=== PATIENT | female | born 1985 | race Caucasian/White ===

== ENCOUNTER 2020-08-24 07:48 | Inpatient (IN) | payer BC ==
[2020-08-24 08:29] VITALS: BMI 27.9
[2020-08-24] MEDS ORDERED: Lidocaine 1% (PF) 30 ML VIAL ONE (08:48)
[2020-08-24] MEDS ORDERED: NS / Oxytocin 40 units/1000ml 1,000 ML ONE (08:48)
[2020-08-24] MEDS ORDERED: hydrALAZINE 20 MG/ML VIAL SLOW IVP PRN ×2 (08:52→11:48)
[2020-08-24] MEDS ORDERED: Ondansetron PF 4 MG/2 ML Vial IVP PRN ×2 (08:52→11:48)
[2020-08-24] MEDS ORDERED: Promethazine HCl 25 MG/ML VIAL IM PRN (08:52)
[2020-08-24] MEDS ORDERED: NS / Oxytocin 40 units/1000ml 1,000 ML IV PRN (08:52)
[2020-08-24] MEDS ORDERED: Ibuprofen 800 MG TAB PO PRN (08:52)
[2020-08-24] MEDS ORDERED: Lactated Ringer's 1,000 ML IV PRN (08:52)
[2020-08-24] MEDS ORDERED: HYDROcodone/Acetaminophen 5/325 mg Tablet PO PRN ×4 (08:52→11:48)
[2020-08-24] MEDS ORDERED: Lidocaine 1% (PF) 30 ML VIAL SC PRN (08:52)
[2020-08-24 09:57] LABS: Hemoglobin 13.1 g/dL (12.0-16.0); Mean Corpuscular HGB CONC 34.8 g/dL (32.0-36.0); Mean Corpuscular Hemoglobin 32.4 pg (27.0-31.0); Mean Corpuscular Volume 93.1 fL (78.0-98.0); Mean Platelet Volume 7.6 fL (7.4-10.4); Platelet Count 163 thou/uL (130-400); RBC Distribution Width 11.6 % (11.5-14.5); Red Blood Cell (RBC) Count 4.06 mill/uL (4.20-5.40); White Blood Cell (WBC) Count 13.3 thou/uL (4.8-10.8)
--- NOTE | 2020-08-24 11:42 | PDOC.LDHP ---
Labor and Delivery H&P Chief complaint: contractions HPI: 35 y.o at 37 weeks 6 days with complains of contractions which started last night. She was able to sleep, but they woke her up this morning at 0600 and know that it was the real thing. She affirms movement. Current gestational age (weeks): 37 (6 day) Due date: 09/08/20 Grav: 2 Para: 1 OB History Details: at term 2009 at [id number] Current complications: none Abnormal US findings: No Current medications: pre- vitamins Previous surgical history: none Social history: none - Physical Exam Vital signs reviewed and normal: yes General: breathing through contractions Lungs: nonlabored breathing Abdomen: gravid FHT: category 1 - Vaginal Exam cm dilated: 6 Effacement: 90% Station: 0 - OB Labs Blood type: O RH: positive Antibody Screen: negative HIV: negative RPR: negative HEPSAg: negative 1 hour GCT: negative GBS: negative Urine drug screen: negative Rubella: immune - Assessment L&D Assessment: term patient in labor - Plan Plan: admit to L&D, informed consent obtained -: Low intervention protocol Anticipate
--- NOTE | 2020-08-24 11:45 | PDOC.OPDEL ---
OB Operative/Delivery Note Delivery Dr/Surgeon: Light Pre-Delivery Diagnosis: active labor Procedure/Post Delivery Dx: spontaneous vaginal delivery Weeks gestation: 37 (6 days) Anesthesia: none - Findings A Sex: female Weight: 6 lb 9 oz - 1 min: 8 - 5 min: 9 - Additional Findings/Plan Placenta delivered: spontaneous Repaired Obstetrical Laceration: none findings: other Estimated blood loss: 250 Post delivery plan: routine recovery
[2020-08-24] MEDS ORDERED: Benzocaine-Menthol 82.5 ML CAN TOP PRN (11:48)
[2020-08-24] MEDS ORDERED: Adacel (T-DAP) 0.5 ML SYRINGE IM ONE (11:48)
[2020-08-24] MEDS ORDERED: Misoprostol 200 MCG TAB VAG PRN (11:48)
[2020-08-24] MEDS ORDERED: Bisacodyl 10 MG SUPP PR PRN (11:48)
[2020-08-24] MEDS ORDERED: Lanolin Ointment 7 GM TUBE TOP PRN (11:48)
[2020-08-24] MEDS ORDERED: Milk Of Magnesia 30 ML UDCUP PO PRN (11:48)
[2020-08-24] MEDS ORDERED: NS / Oxytocin 40 units/1000ml 1,000 ML IV SCH (11:48)
[2020-08-24] MEDS ORDERED: FLU VACC QS2020-21(6MOS UP)/PF 60 MCG/0.5 ML SYRINGE IM ONE (13:00)
[2020-08-24] MEDS: Ibuprofen 800 MG TAB PO SCH ×2 (13:41→22:08)
[2020-08-24 14:05] LABS: HBSAg Index 0.15 S/CO (0-0.99); Hep B Surf Ag Non-Reactive S/CO (NonReactive)
[2020-08-24] MEDS: Ferrous Sulfate 325 MG TAB PO SCH (14:51)
[2020-08-24] MEDS: Docusate Calcium (SURFAK) 240 MG CAP PO SCH (22:08)
[2020-08-25] MEDS: Ibuprofen 800 MG TAB PO SCH (06:26)
[2020-08-25] MEDS: Ferrous Sulfate 325 MG TAB PO SCH ×2 (07:08→10:07)
[2020-08-25 08:00] VITALS: BP 99/56; TEMP 98.5
[2020-08-25] MEDS: Docusate Calcium (SURFAK) 240 MG CAP PO SCH (08:10)
[2020-08-25] MEDS ORDERED: Prenatal Vitamin 1 TAB PO SCH (09:00)
[2020-08-25 09:10] LABS: Syphilis Antibody Nonreactive (Nonreactive); Syphilis Antibody Index 0.06 S/CO (<1.00 Non-Reactive)
== END 2020-08-25 12:19 | disposition home or self-care (01) | DRG 807 ==
LOC: L&D/OP 07:48 → L&D-LIB 08:54 → 3SE 12:08
PROVIDERS: ADMIT Obstetrics & Gynecology; ATTEND Obstetrics & Gynecology
PROC: 10E0XZZ Delivery of Products of Conception, External Approach (ICD-10-PCS; principal; 2020-08-24)
DX: O80 Encounter for full-term uncomplicated delivery (principal); Z37.0 Single live birth; Z3A.37 37 weeks gestation of pregnancy
CPT/HCPCS: 36415; 85027; 86780; 86850; 86900; 86901; 87340; 99285; J2001